=== PATIENT | female | born 1940 | race African-American/Black ===

== ENCOUNTER 2023-12-09 13:31 | Emergency (ER) | payer BC, OTHER ==
[2023-12-09 14:13] VITALS: RESP 17; TEMP 98.3; BMI 30.9
[2023-12-09 15:21] LABS: BASO % 1.1 % (0-2.0); EOS % 0.7 % (0-4.5); HEMATOCRIT 35.4 % (32.4-45.2); HEMOGLOBIN 11.9 GM/dL (10.7-15.3); MCH 26.1 pg (25.7-33.7); MCHC 33.7 g/dl (32.0-36.0); MEAN CELL VOLUME 77.6 fl (80-96); MEAN PLT VOLUME 7.5 fl (7.5-11.1); MONO % 6.3 % (3.8-10.2); NEUT % 76.9 % (42.8-82.8); PLATELET COUNT 256 10^3/uL (134-434); RBC 4.57 M/mm3 (3.60-5.2); RDW 19.9 % (11.6-15.6); WHITE BLOOD COUNT 4.2 K/mm3 (4.0-10.0)
[2023-12-09 15:34] VITALS: BP 171/57; PULSE 59
[2023-12-09 15:48] LABS: POTASSIUM 4.6 mmol/L (3.5-5.1)
[2023-12-09 15:50] LABS: ALBUMIN 3.9 g/dl (3.4-5.0); BLOOD UREA NITROGEN 31.3 mg/dL (7-18); CALCIUM 8.6 mg/dL (8.5-10.1)
[2023-12-09 15:53] LABS: CREATININE 2.4 mg/dL (0.55-1.3)
[2023-12-09 15:55] LABS: BILIRUBIN,TOTAL 0.6 mg/dL (0.2-1); TOT PROT 7.8 g/dl (6.4-8.2)
[2023-12-09 15:57] LABS: N-TERMINAL BNP 592.8 pg/ml (5-450)
== END 2023-12-09 18:55 | disposition home or self-care (01) ==
LOC: JER 13:31
DX: R11.0 Nausea (principal); R53.1 Weakness; R23.2 Flushing; Z20.822 Contact with and (suspected) exposure to COVID-19
CPT/HCPCS: 0241U-QW; 36415; 71045-TC-FY; 80053; 83880; 84484; 85025; 93005; 93010; 99285-25